=== PATIENT | male | born 1950 | race Caucasian/White ===

== ENCOUNTER 2022-03-03 10:51 | Day surgery (SDC) | payer OTHER ==
[~2022-03-03] VITALS: Ht 182.9 cm; Wt 91.8 kg
[2022-03-03 13:20] VITALS: BP 115/58; PULSE 67; TEMP 96.7
--- NOTE | 2022-03-03 13:20 | NUR ---
PT TO BAY 7 PER CART FROM PROCEDURE ROOM. REPORT RECEIVED. VS OBTAINED. CALL LIGHT WITHIN REACH. PT DENIES ANY NEEDS AT THIS TIME.
--- NOTE | 2022-03-03 13:20 | NUR ---
PT TO BAY 7 PER CART FROM PROCEDURE ROOM. REPORT RECEIVED. VS OBTAINED. CALL LIGHT WITHIN REACH. PT DENIES ANY NEEDS AT THIS TIME.
[2022-03-03 13:35] VITALS: BP 135/64; PULSE 60
[2022-03-03 13:50] VITALS: BP 126/62; PULSE 66
--- NOTE | 2022-03-03 14:10 | NUR ---
IV DC'D AT THIS TIME.
--- NOTE | 2022-03-03 14:10 | NUR ---
IV DC'D AT THIS TIME.
--- NOTE | 2022-03-03 14:30 | NUR ---
1420-DISCHARGE EDUCATION COMPLETED WITH PT. VERBALIZED UNDERSTANDING OF HOME AND FOLLOW UP CARE. DISCHARGE PAPERWORK GIVEN TO PT. 1430-PT OFF UNIT PER WHEELCHAIR. PT DISCHARGED TO HOME WITH SIGNIFICANT OTHER PER PERSONAL VEHICLE.
[2022-03-03 15:07] VITALS: BP 113/68; PULSE 76; TEMP 97.5
== END 2022-03-03 14:30 | disposition home or self-care (01) ==
LOC: SDCO 10:51
DX: I85.00 Esophageal varices without bleeding (principal); K74.60 Unspecified cirrhosis of liver; F10.11 Alcohol abuse, in remission; I10 Essential (primary) hypertension; Z87.891 Personal history of nicotine dependence
CPT/HCPCS: J2704; J7030

== ENCOUNTER → 2023-09-18 | Outpatient (CLI) | payer OTHER ==
[~2023-09-18] MED LIST: ASPIRIN 81M81 MG/TA2 PO; COZAAR100 MG PO; GLUCOPHAGE500 MG/TAB PO; GLUCOTROL10 MG PO; LIPITOR 80MG80 MG PO; NATURAL IRON65 MG PO; NEURONTIN300 MG/CAP PO; VITAMIN C500 MG PO; VITAMIND3 5000 PO
== END ==
LOC: MHCPAIN 08:03
DX: M47.817 Spondylosis without myelopathy or radiculopathy, lumbosacral region (principal); M48.061 Spinal stenosis, lumbar region without neurogenic claudication; M54.50 Low back pain, unspecified; M25.511 Pain in right shoulder; Z79.84 Long term (current) use of oral hypoglycemic drugs; I10 Essential (primary) hypertension; E11.9 Type 2 diabetes mellitus without complications
CPT/HCPCS: G0463

== ENCOUNTER → 2023-11-09 | Outpatient (CLI) | payer OTHER ==
[~2023-11-09] MED LIST changes: +CYMBALTA 30MG30 MG PO; +ERGOCALCIFER50000 IU PO; +FLOMAX 0.40.4 MG/CAP PO; +GLUCOPHAGE850 MG/TAB PO; +NESINA25 PO; +ZANAFLEX CAPSULE4 MG PO
== END ==
LOC: MHCPAIN 09:38
DX: M47.897 Other spondylosis, lumbosacral region (principal); M48.061 Spinal stenosis, lumbar region without neurogenic claudication; M25.511 Pain in right shoulder; E11.9 Type 2 diabetes mellitus without complications; I10 Essential (primary) hypertension; E78.5 Hyperlipidemia, unspecified
CPT/HCPCS: G0463

== ENCOUNTER → 2024-01-03 | Outpatient (CLI) | payer OTHER ==
[~2024-01-03] MED LIST changes: +Lidocaine PF 2% (20 MG/ML) 5 ML VIAL ONE; +Midazolam 2 MG/2 ML VIAL ONE; +fentaNYL 50 MCG/ML 2 ML VIAL ONE
== END ==
LOC: MHCPAIN 09:48
DX: M47.817 Spondylosis without myelopathy or radiculopathy, lumbosacral region (principal); M54.50 Low back pain, unspecified
CPT/HCPCS: J0665; J2250; J3010